=== PATIENT | female | born 1955 | race African-American/Black ===

== ENCOUNTER 2018-04-12 11:27 | Inpatient (IN) ==
[2018-04-12] MEDS ORDERED: Succinylcholine Inj 200 MG/10 ML Vial ONE (11:39)
[2018-04-12] MEDS ORDERED: Lidocaine PF 1% Inj 2 ML Ampul ONE (11:41)
[2018-04-12] MEDS ORDERED: Propofol 1000 mg/100 ml Inj 1,000 MG/100 ML BOTTLE ONE (11:45)
[2018-04-12] MEDS ORDERED: Sod Chloride 0.9% Inj 1,000 ML IV.CONT SCH (11:45)
[2018-04-12] MEDS ORDERED: niCARdipine Inj 25 MG in Sodium Chlor 0.9% Inj 240 ML IV.CONT PRN (11:47)
[2018-04-12] MEDS ORDERED: Etomidate Inj 20 MG/10 ML Ampul IV.PUSH ONE (11:47)
[2018-04-12] MEDS ORDERED: Succinylcholine Inj 100 MG/5 ML Syringe IV.PUSH ONE (11:47)
[2018-04-12] MEDS ORDERED: Propofol 1000 mg/100 ml Inj 1,000 MG/100 ML BOTTLE IV.CONT PRN (11:47)
[2018-04-12 11:50] LABS: Baso # (Auto) 0.1 th/mm3 (0.0-0.2); Baso % (Auto) 0.9 % (0.0-2.0); Eos # (Auto) 0.1 th/mm3 (0.0-0.4); Eos % (Auto) 1.5 % (0.0-4.0); Hematocrit 43.4 % (35.0-46.0); Hemoglobin 14.3 gm/dL (11.6-15.3); Lymph # (Auto) 4.1 th/mm3 (1.0-4.8); Lymph % (Auto) 57.2 % (9.0-44.0); Mean Corpuscular Hemoglobin 28.1 pg (27.0-34.0); Mean Corpuscular Volume 84.9 fL (80.0-100.0); Mean Platelet Volume 9.8 fL (7.0-11.0); Mono # (Auto) 0.5 th/mm3 (0.0-0.9); Mono % (Auto) 6.6 % (0.0-8.0); Neut # (Auto) 2.4 th/mm3 (1.8-7.7); Neut % (Auto) 33.8 % (16.0-70.0); Platelet Count 171 th/mm3 (150-450); Red Blood Count 5.11 mil/mm3 (4.00-5.30); Red Cell Distribution Width 13.6 % (11.6-17.2); White Blood Count 7.2 th/mm3 (4.0-11.0)
--- NOTE | 2018-04-12 11:55 | CT ---
EXAM DATE: 04/12/2018 11:41 AM EDT AGE/SEX: 62 years / Female INDICATIONS: STROKE ALERT CLINICAL DATA: This is the patient's initial encounter. Patient reports that signs and symptoms have been present for 1 day and indicates a pain score of Nonresponsive. MEDICAL/SURGICAL HISTORY: Non-responsive. Non-responsive. RADIATION DOSE: 56.37 CTDI (mGy) COMPARISON: No prior exams available for comparison. TECHNIQUE: CT of the head without contrast. Using automated exposure control and adjustment of the mA and/or kV according to patient size, radiation dose was kept as low as reasonably achievable to ob tain optimal diagnostic quality images. DICOM format image data is available electronically for revi ew and comparison. FINDINGS: There is acute intraparenchymal blood products within the right frontal lobe, right basal ganglia, an d anterior right temporal lobe measuring approximately 6.7 x 4.2 cm. There is surrounding vasogenic e nelson with local mass effect causing 13 mm of [id number]-mcqa midline shift. Subarachnoid blood products also layer along the sulci in the right frontal lobe and there are acute blood products in the perim esencephalic cisterns and interpeduncular fossa. Ventricles are not enlarged. Besides the blood products in the posterior fossa, the posterior fossa s tructures including the cerebellum demonstrate no acute abnormality. No skull fracture is identified. The visualized sinuses are clear. CONCLUSION: 1. Acute intraparenchymal hemorrhage measuring up to 6.7 cm with surrounding vasogenic edema. This c auses local mass effect with 13 mm of aarkj-ok-sumv midline shift. 2. Subarachnoid blood products layer along the right frontal sulci and in the perimesencephalic cist erns. Findings were telephoned to Dr. Weaver on 04/12/2018 at 1151 hours. Electronically signed by: Jairo Conner MD 04/12/2018 11:54 AM EDT
--- NOTE | 2018-04-12 12:02 | ED ---
HPI General Chief Complaint: Stroke Alert Stated Complaint: Stroke Alert Time Seen by Provider: 04/12/18 11:31 Source: EMS Mode of arrival: EMS Limitations: altered mental status and physical limitation History of Present Illness HPI Narrative: The patient is a 62-year-old female who presents to the emergency department via EMS as a stroke alert. According to EMS the patient was at [employer], sitting in the sun earlier today when she collapsed at approximately 11 AM. The patient appear to have a syncopal episode and then was noted to have left-sided weakness and left facial droop. EMS states that the patient's symptoms started at 11 AM. Upon arrival the patient had snoring respirations, was nonverbal, but would follow some simple commands. She was able to raise her right arm, flex her right hip, and squeeze her right hand. She was unable to perform any movements with the left side of the body. She was unable to answer any questions. History was obtained from EMS who states the patient has a history of hypertension and takes an a blood pressure medication for hypertension, they state the patient is on no anticoagulants. Time: 11:00 Timing confirmed by: other Location: speech, left face, left arm and left leg History of same: No Severity: severe Quality: weak Relieving factors: none Exacerbating factors: none Context: sudden onset On Anticoagulants: No Treatments Prior to Arrival: none Related Data Allergies Allergy/AdvReac Type Severity Reaction Status Date / Time No Known Allergies Allergy Uncoded 01/23/16 14:05 Review of Systems ROS Unobtainable ROS Unobtainable: unobtainable due to mental status ROS: all other systems reviewed are negative PMFSH Social History Social History Substance History: Unable to Obtain Smoking Status: Unknown if ever smoked How Often Do You Have a Drink Containing Alcohol: Unable to Obtain Recent Travel in [facility] within the Last 8 Weeks: No Recent Out of Country Travel within the Last 8 Weeks: No Immunization History Tetanus Immunization: Unsure Hx Influenza Vaccine This Season: Unable to Assess Exam Narrative Exam Narrative: GENERAL: 62-year-old female who presents to the emergency department via EMS with rhonchorous respirations and flaccid left side. SKIN: Focused skin assessment warm/dry. HEAD: Atraumatic. Normocephalic. EYES: Right pupil is 5 mm, slightly irregular, nonreactive. Left pupil is 4 mm and sluggish. ENT: No nasal bleeding or discharge. Mucous membranes pink and moist. NECK: Trachea midline. No JVD. CARDIOVASCULAR: Regular rate and rhythm. No murmur appreciated. RESPIRATORY: No accessory muscle use. Clear to auscultation. Breath sounds equal bilaterally. GASTROINTESTINAL: Abdomen soft, non-tender, nondistended. MUSCULOSKELETAL: No obvious deformities. No clubbing. No cyanosis. No edema. NEUROLOGICAL: Patient's right pupil is irregular, nonreactive. Left pupil is 4 mm and sluggish. Nonverbal. Right facial droop. Flaccid on the left side of the body, does not withdrawal to pain. Flex his right hip spontaneously. Is able to raise her right arm. Unable to assess alert and orientation as patient is currently nonverbal with slightly snoring and rhonchorous respirations. PSYCHIATRIC: Unable to assess. Procedures Arterial Line Time Out Performed: Yes Size (Gauge): 18 Technique Used: guide wire technique Post-Procedure: line sutured into place Patient Tolerated Procedure: well Complications: none Site: left Intubation Time Out Performed: Yes Sedative: etomidate Mg Given: 20 Paralytic: succinylcholine Mg Given: 100 Laryngoscope: Juan ET Tube Size: 8 ET Tube Uncuffed: No Tube Secured Depth (cm): 23 Tube Placement Confirmation: visualized tube passing through cords, equal breath sounds bilaterally, no breath sounds over epigastrium and confirmation by capnometry Patient Tolerated Procedure: well Intubation Complications: none Course Initial Documented Vital Signs Pulse Rate 69 04/12/18 11:42 Respiratory Rate 18 04/12/18 11:42 Blood Pressure 190/91 H 04/12/18 11:42 Pulse Oximetry 99 04/12/18 11:42 Last Documented Vital Signs Temperature 95.9 F L 04/12/18 12:24 Pulse Rate 73 04/12/18 12:24 Respiratory Rate 16 04/12/18 12:24 Blood Pressure 73/49 L 04/12/18 12:24 Pulse Oximetry 100 04/12/18 12:26 Critical Care Time Critical Care Time: Yes Total Critical Care Time: 50 Attestation: Aggregate critical care time was 50 minutes. Time to perform other separately billable procedures was not included in the critical care time. My time did not include minutes spent treating any other patients simultaneously or on activities that did not directly contribute to the patient's treatment. The services I provided to this patient were to treat and/or prevent clinically significant deterioration that could result in: Anoxia, hypoxia, aspiration, herniation, arrhythmia. I provided critical care services requiring my management, as noted below: Chart data review, documentation time, medication orders and management, vital sign assessments/reviewing monitor data, ordering and reviewing lab tests, ordering and interpreting/reviewing x-rays and diagnostic studies, care of the patient and discussion of the patient with the admitting physicians. NIH Stroke Scale NIHSS Time Completed NIHSS Time Completed: 11:34 NIH Stroke Scale Level of Consciousness: 1-Drowsy Orientation Questions: 2-Neither task correct Responds to Commands: 1-One task correct Gaze Eye Movement: 2-Complete gaze palsy Visual Kerr: 3-Bilateral hemianopia Facial Movement: 3-Complete unilateral palsy Motor Functions Arm LEFT: 3-No effort against gravity Motor Functions Arm RIGHT: 0-No drift Motor Functions Leg LEFT: 3-No effort against gravity Motor Functions Leg RIGHT: 2-Falls before 5 seconds Limb Ataxia: 2-Ataxia in two limbs Sensory Loss: 2-Severe sensory loss Best Language: 3-Mute or global aphasia Articulation: 2-Severe dysarthria Extinction or Inattention Sensory: 2-Loss 2 modalities Total: 31 Medical Decision Making MDM Narrative Medical decision making narrative: under direct visualization with a MAC blade , 8 oh endotracheal tubeThe patient was called a stroke alert upon arrival to the emergency department. The patient was noted to have left-sided deficits, snoring and rhonchorous respirations, and decreased mental status. The patient went immediately to CT for CT the brain which revealed a large intracranial hemorrhage. The patient was brought back to echo pod and intubated to protect airway with 20 mg of etomidate, 100 mg of succinylcholine, and 100 mg of lidocaine that was administered first. The patient was administer mannitol 50 g intravenously. I discussed the patient with the neurosurgeon, Dr. Tinoco, who evaluated the patient CT the brain and requested CTA to evaluate for aneurysm rupture. The patient then went immediately to CT for CTA of the head and neck. The patient was brought back to echo pod, OG tube and Vasquez catheter were placed. The patient was administered pneumo top 30 mg via OG, placed on a Cardene drip to keep systolic blood pressure less than 140, and a propofol drip. The patient received Keppra 1 g intravenously. An arterial line was placed in the left radial artery. The neurosurgeon then placed a ventriculostomy tube and spoke with the neurosurgeons at [facility], the patient will be transferred to [facility] in [place], [place], for definitive care. I discussed the findings with the patient's family Medical Screen Exam Complete: Yes Emergency Medical Condition: Yes Differential Diagnosis Differential Diagnosis: Differential diagnosis includes intracranial hemorrhage , subarachnoid hemorrhage, aneurysm with rupture, coagulopathy, herniation. Lab Data Lab results reviewed: Yes I reviewed the patient's lab results. Result diagrams: 04/12/18 11:30 04/12/18 11:30 Lab Results 04/12/18 04/12/18 04/12/18 Range/Units 11:30 11:30 11:30 WBC 7.2 (4.0-11.0) th/mm3 RBC 5.11 (4.00-5.30) mil/mm3 Hgb 14.3 (11.6-15.3) gm/dL POC Hgb (Calc) 14.6 (11.6-15.3) g/dL Hct 43.4 (35.0-46.0) % POC Hct 43.0 (35-46.0) % MCV 84.9 (80.0-100.0) fL MCH 28.1 (27.0-34.0) pg MCHC 33.0 (32.0-36.0) % RDW 13.6 (11.6-17.2) % Plt Count 171 (150-450) th/mm3 MPV 9.8 (7.0-11.0) fL Neut % (Auto) 33.8 (16.0-70.0) % Lymph % (Auto) 57.2 H (9.0-44.0) % [place] % (Auto) 6.6 (0.0-8.0) % Eos % (Auto) 1.5 (0.0-4.0) % Baso % (Auto) 0.9 (0.0-2.0) % Neut # (Auto) 2.4 (1.8-7.7) th/mm3 Lymph # (Auto) 4.1 (1.0-4.8) th/mm3 [place] # (Auto) 0.5 (0.0-0.9) th/mm3 Eos # (Auto) 0.1 (0.0-0.4) th/mm3 Baso # (Auto) 0.1 (0.0-0.2) th/mm3 WBC Differential . Differential Comment Auto diff final PT 10.4 (9.8-11.6) sec INR 1.0 Ratio APTT 17.8 L (24.3-30.1) sec Fibrinogen 328 (227-377) mg/dL Puncture Site Patient Temperature VBG pH (7.360-7.400) VBG pCO2 (44-48) mmHG VBG pO2 (35-40) mmHG VBG HCO3 (22-26) mmol/L VBG O2 Saturation (70-76) % VBG O2 Content (9.0-17.0) Vol % VBG Base Excess (-2-2) mmol/L VBG Carboxyhemoglobin (0-4) % VBG Methemoglobin (0-2) % Hemoglobin (12.0-16.0) G/DL O2 Delivery Device Vent Setting Inspired O2 % Critical Value POC Sodium 143 (137-144) mmol/L Sodium 143 (136-145) meq/L POC Potassium 3.0 L (3.6-5.0) mmol/L Potassium 3.0 L (3.5-5.1) meq/L POC Chloride 108 (102-111) mmol/L Chloride 110 H (98-107) meq/L Carbon Dioxide 26.1 (21.0-32.0) meq/L Anion Gap 7 (5-15) meq/L POC BUN 15 (5-21) mg/dL BUN 15 (7-18) mg/dL Creatinine 1.02 H (0.50-1.00) mg/dL POC Creatinine 0.9 (0.6-1.3) mg/dL Estimated GFR 66 L (>89) mL/min POC Glucose 174 H (68-110) mg/dL Random Glucose 167 H (74-106) mg/dL Calcium 8.8 (8.5-10.1) mg/dL Total Creatine Kinase 90 (26-192) U/L Troponin I Less than 0.02 L (0.02-0.05) ng/mL Urine Color (Yellw/Straw) Urine Clarity (Clear) Urine pH (5.0-8.5) Ur Specific [place] (1.002-1.035) Urine Protein (Neg-Trace) mg/dL Urine Glucose (UA) (Negative) mg/dL Urine Ketones (Negative) mg/dL Urine Occult Blood (Negative) Urine Nitrate (Negative) Urine Bilirubin (Negative) Urine Urobilinogen (Less than 2) mg/dL Ur Leukocyte Esterase (Negative) Urine RBC (0-3) /hpf Urine WBC (0-5) /hpf Ur Squamous Epith Cells (0-5) /hpf Urine Bacteria (None) /hpf Hyaline Casts (0-3) /lpf Urine Mucus (Occasional) /lpf Micro UA Comment Urine Culture Comments Blood Type Blood Type Recheck Antibody Screen 04/12/18 04/12/18 04/12/18 Range/Units 11:30 11:57 12:35 WBC (4.0-11.0) th/mm3 RBC (4.00-5.30) mil/mm3 Hgb (11.6-15.3) gm/dL POC Hgb (Calc) (11.6-15.3) g/dL Hct (35.0-46.0) % POC Hct (35-46.0) % MCV (80.0-100.0) fL MCH (27.0-34.0) pg MCHC (32.0-36.0) % RDW (11.6-17.2) % Plt Count (150-450) th/mm3 MPV (7.0-11.0) fL Neut % (Auto) (16.0-70.0) % Lymph % (Auto) (9.0-44.0) % [place] % (Auto) (0.0-8.0) % Eos % (Auto) (0.0-4.0) % Baso % (Auto) (0.0-2.0) % Neut # (Auto) (1.8-7.7) th/mm3 Lymph # (Auto) (1.0-4.8) th/mm3 [place] # (Auto) (0.0-0.9) th/mm3 Eos # (Auto) (0.0-0.4) th/mm3 Baso # (Auto) (0.0-0.2) th/mm3 WBC Differential Differential Comment PT (9.8-11.6) sec INR Ratio APTT (24.3-30.1) sec Fibrinogen (227-377) mg/dL Puncture Site Right radial Patient Temperature 98.6 VBG pH 7.36 (7.360-7.400) VBG pCO2 39 L (44-48) mmHG VBG pO2 47 H (35-40) mmHG VBG HCO3 21 L (22-26) mmol/L VBG O2 Saturation 80 H (70-76) % VBG O2 Content 14.2 (9.0-17.0) Vol % VBG Base Excess -3.2 L (-2-2) mmol/L VBG Carboxyhemoglobin 0.8 (0-4) % VBG Methemoglobin 0.7 (0-2) % Hemoglobin 12.7 (12.0-16.0) G/DL O2 Delivery Device Ventilator Vent Setting Prvc20/500/1.0/+5 Inspired O2 50 % Critical Value No POC Sodium (137-144) mmol/L Sodium (136-145) meq/L POC Potassium (3.6-5.0) mmol/L Potassium (3.5-5.1) meq/L POC Chloride (102-111) mmol/L Chloride (98-107) meq/L Carbon Dioxide (21.0-32.0) meq/L Anion Gap (5-15) meq/L POC BUN (5-21) mg/dL BUN (7-18) mg/dL Creatinine (0.50-1.00) mg/dL POC Creatinine (0.6-1.3) mg/dL Estimated GFR (>89) mL/min POC Glucose (68-110) mg/dL Random Glucose (74-106) mg/dL Calcium (8.5-10.1) mg/dL Total Creatine Kinase (26-192) U/L Troponin I (0.02-0.05) ng/mL Urine Color Yellow (Yellw/Straw) Urine Clarity Cloudy H (Clear) Urine pH 6.0 (5.0-8.5) Ur Specific [place] 1.013 (1.002-1.035) Urine Protein 100 H (Neg-Trace) mg/dL Urine Glucose (UA) 150 H (Negative) mg/dL Urine Ketones Trace H (Negative) mg/dL Urine Occult Blood Large H (Negative) Urine Nitrate Negative (Negative) Urine Bilirubin Negative (Negative) Urine Urobilinogen Less than 2 (Less than 2) mg/dL Ur Leukocyte Esterase Trace H (Negative) Urine RBC 1 (0-3) /hpf Urine WBC 7 H (0-5) /hpf Ur Squamous Epith Cells 13 (0-5) /hpf Urine Bacteria Rare H (None) /hpf Hyaline Casts 3 (0-3) /lpf Urine Mucus Few H (Occasional) /lpf Micro UA Comment Cath-culture ind Urine Culture Comments Cath-cult indicated Blood Type A Positive Blood Type Recheck Required Antibody Screen Negative Imaging Data Radiologist's impression: Chest X-Ray 04/12/18 11:31 CONCLUSION: 1. ETT in good position. NGT in the stomach. 2. Minimal patchy bilateral lower lobe airspace disease, likely atelectasis. Head CT 04/12/18 11:31 CONCLUSION: 1. Acute intraparenchymal hemorrhage measuring up to 6.7 cm with surrounding vasogenic edema. This causes local mass effect with 13 mm of npbzu-tu-woqm midline shift. 2. Subarachnoid blood products layer along the right frontal sulci and in the perimesencephalic cisterns. Findings were telephoned to Dr. Weaver on 04/12/2018 at 1151 hours. Head CTA 04/12/18 11:31 CONCLUSION: 1. Findings consistent with active hemorrhage from the distal right M1 branch with associated large right parietal intraparenchymal hematoma and significant ctgaa-wo-qkng subfalcine herniation as described on noncontrasted CT exam. The right M2 branches are largely not opacified although a single M2 branch is noted coursing posteriorly from the region of extravasation. Although active hemorrhage obscures any potential vascular abnormality, the overall findings are very concerning for active hemorrhage from the distal right M1 aneurysm. Findings were personally discussed with the neurosurgeon propagation worker. Neck CTA 04/12/18 11:31 CONCLUSION: 1. Motion degraded exam with limited evaluation of the mid to distal right internal carotid cervical segment. 2. Otherwise, no significant carotid flow-limiting stenosis or atherosclerotic plaque. 3. Asymmetric vertebral arteries with small caliber left vertebral artery likely terminating in PICA. ECG Data EKG Prior to Arrival: No Interpretation: EKG reveals normal sinus rhythm with a rate of 75. ST changes noted in lead V5, V6, I, and aVL. Discharge Plan Discharge Disposition Patient Disposition: 02 Disch To Another Hospital Discharge Condition Condition: Critical Discharge Order Discharge Orders: Discharge Order (Routine); Ordered 04/12/18 Ordered By: Sergey Weaver Discharge Details Diagnosis: Intraparenchymal hemorrhage of brain, Subarachnoid hemorrhage, Brain aneurysm Physicians Team ED Provider: Sergey Weaver Primary Care Provider: Hilary Zhang Discharge Interventions Interventions: Vital Signs Last Done: 04/12/18 12:24 Status ED Status: With Doctor
[2018-04-12 12:04] LABS: Anion Gap 7 meq/L (5-15); Blood Urea Nitrogen 15 mg/dL (7-18); Calcium 8.8 mg/dL (8.5-10.1); Carbon Dioxide 26.1 meq/L (21.0-32.0); Chloride 110 meq/L (98-107); Glomerular Filtration Rate 66 mL/min (>89); Glucose,Random 167 mg/dL (74-106); Prothrombin Time 10.4 sec (9.8-11.6); Sodium 143 meq/L (136-145)
[2018-04-12 12:07] LABS: Activated Partial Thrombo Time 17.8 sec (24.3-30.1)
[2018-04-12] MEDS ORDERED: Lidocaine 2% 100 MG/5 ML Syringe IV.PUSH ONE (12:11)
[2018-04-12 12:30] LABS: Creatine Kinase 90 U/L (26-192)
[2018-04-12 12:31] LABS: Bacteria,Urine Rare /hpf; Bilirubin,Urine Negative (Negative); Clarity,Urine Cloudy (Clear); Color,Urine Yellow (Yellw/Straw); Glucose,Urine (UA) 150 mg/dL (Negative); Hyaline Casts,Urine 3 /lpf (0-3); Leukocyte Esterase,Urine Trace (Negative); Mucus,Urine Few /lpf (Occasional); Nitrite,Urine Negative (Negative); Specific Gravity,Urine 1.013 (1.002-1.035); Squamous Epithelial Cell,Urine 13 /hpf (0-5)
[2018-04-12] MEDS ORDERED: Sodium Chlor 0.9% Inj 500 ML IV.SIG ONE (12:31)
[2018-04-12] MEDS ORDERED: Lidocaine 1%/Epinephrine 1:100,000 Inj 50 ML Vial ONE (12:41)
[2018-04-12 12:44] LABS: VBG Base Excess -3.2 mmol/L (-2-2); VBG Blood Gas Oxygen Content 14.2 Vol % (9.0-17.0); VBG PCO2 39 mmHG (44-48); VBG PH 7.36 (7.360-7.400); VBG PO2 47 mmHG (35-40)
[2018-04-12] MEDS ORDERED: Potassium Chlor 20 mEq Premix 20 MEQ/100 ML PIGGYBACK IV.SIG SCH (12:45)
[2018-04-12] MEDS ORDERED: ceFAZolin 2 GM Premix Inj 2 GM/50 ML PIGGYBACK IV.SIG ONE (12:49)
--- NOTE | 2018-04-12 12:56 | CT ---
EXAM DATE: 04/12/2018 12:30 PM EDT AGE/SEX: 62 years / Female INDICATIONS: Stroke alert. Blown right pupil. CLINICAL DATA: This is the patient's initial encounter. Patient reports that signs and symptoms have been present for 1 day and indicates a pain score of Nonresponsive. MEDICAL/SURGICAL HISTORY: Non-responsive. Non-responsive. RADIATION DOSE: 9.55 CTDI (mGy) ; Combined studies COMPARISON: [facility], CT HEAD W/O CONTRAST, 04/12/2018. . TECHNIQUE: Volumetric scanning was performed using a multi-row detector CT scanner during bolus infu vandana of 100 ml Visipaque 320 (iodixanol) nonionic water-soluble contrast as a cumulative dose for mu ltiple exams. The data was post processed with a variety of visualization algorithms including full volume maximum intensity projection, multi-planar sliding thin slab reformation, curved planar refor mation, and surface rendering techniques. Using automated exposure control and adjustment of the mA and/or kV according to patient size, radiation dose was kept as low as reasonably achievable to obtai n optimal diagnostic quality images. DICOM format image data is available electronically for review and comparison. FINDINGS: Anterior Circulation: Intracranial Carotid Arteries: Patent. ARIADNA: There is no evidence for aneurysm, vessel truncation or stenosis, and no evidence for vascular m alformation. MCA: There is active extravasation of contrast from the distal right M1 branch with a large right par ietal intraparenchymal hematoma and significant 1.3 cm right to left subfalcine herniation. The right M2 branches are largely not opacified on the right although a single M2 branch is noted coursing pos teriorly from the region of extravasation. Overall, the findings are very concerning for active hemor rhage from a distal M1 aneurysm. Left MCA branches are grossly patent without a large aneurysm althou gh evaluation is limited by motion artifact and mass effect at Posterior Circulation: Distal Vertebral Arteries: Asymmetrical distal vertebral arteries with dominant right vertebral arter y. Left vertebral artery is small in caliber and may terminate in PICA. Basilar Artery: Basilar artery is patent without significant aneurysm. WOOL BU[employer]ER and Cerebellar Branches: Posterior cerebral arteries are diminutive in caliber but patent. CONCLUSION: 1. Findings consistent with active hemorrhage from the distal right M1 branch with associated large right parietal intraparenchymal hematoma and significant jepjf-tb-omzi subfalcine herniation as descr ibed on noncontrasted CT exam. The right M2 branches are largely not opacified although a single M2 b ranch is noted coursing posteriorly from the region of extravasation. Although active hemorrhage obsc ures any potential vascular abnormality, the overall findings are very concerning for active hemorrha ge from the distal right M1 aneurysm. Findings were personally discussed with the neurosurgeon authorization manager. Electronically signed by: Pravin Armendariz MD 04/12/2018 12:54 PM EDT
[2018-04-12] MEDS ORDERED: levETIRAcetam 1000mg/100mL Inj 100 ML IV.SIG ONE (12:59)
--- NOTE | 2018-04-12 13:00 | CT ---
EXAM DATE: 04/12/2018 12:53 PM EDT AGE/SEX: 62 years / Female INDICATIONS: Stroke alert. Blown right pupil. CLINICAL DATA: This is the patient's initial encounter. Patient reports that signs and symptoms have been present for 1 day and indicates a pain score of Nonresponsive. MEDICAL/SURGICAL HISTORY: Non-responsive. Non-responsive. RADIATION DOSE: 9.55 CTDI (mGy) ; Combined studies COMPARISON: No prior exams available for comparison. TECHNIQUE: Volumetric scanning was performed using a multirow detector CT scanner during bolus infus ion of 100 ml Visipaque 320 (iodixanol) nonionic water-soluble contrast as a cumulative dose for mul tiple exams. The data was postprocessed with a variety of visualization algorithms including full-v olume maximum intensity projection, multiplanar sliding thin-slab reformation, curved-planar reformat ion, and surface-rendering techniques. Using automated exposure control and adjustment of the mA and /or kV according to patient size, radiation dose was kept as low as reasonably achievable to obtain o ptimal diagnostic quality images. DICOM format image data is available electronically for review and comparison. Percent stenosis is calculated using the diameter of the stenotic region over the diameter of the nor mal distal internal carotid artery. FINDINGS: Aortic Arch: There is a three-vessel origin of the great vessels from the aorta. No evidence of ost ial narrowing Right Carotid: The common carotid artery is intact. The carotid bulb has a normal configuration wit hout ulceration or narrowing. Mid to distal cervical segment of the internal carotid artery demonstra jd diffuse luminal irregularity due to motion artifact. No definitive focal flow-limiting stenosis o r significant atherosclerotic plaque. The external carotid artery is intact. Left Carotid: The common carotid artery is intact. The carotid bulb has a normal configuration with out ulceration or narrowing. The internal carotid artery lumen is patent without stenosis. The exte rnal carotid artery is intact. Vertebrals: Asymmetric vertebral arteries with small caliber left vertebral artery likely terminates in PICA. No focal flow-limiting stenosis. General Findings: Patient is intubated with NG tube coursing through the esophagus. Mild patchy airsp júnior disease in the posterior lower lobes bilaterally likely due to atelectasis. CONCLUSION: 1. Motion degraded exam with limited evaluation of the mid to distal right internal carotid cervical segment. 2. Otherwise, no significant carotid flow-limiting stenosis or atherosclerotic plaque. 3. Asymmetric vertebral arteries with small caliber left vertebral artery likely terminating in PICA . Electronically signed by: Pravin Armendariz MD 04/12/2018 12:59 PM EDT
--- NOTE | 2018-04-12 13:01 | XR ---
EXAM DATE: 04/12/2018 12:42 PM EDT AGE/SEX: 62 years / Female INDICATIONS: Stroke. CLINICAL DATA: This is the patient's initial encounter. Patient reports that signs and symptoms have been present for 1 day and indicates a pain score of Nonresponsive. MEDICAL/SURGICAL HISTORY: Stroke. Non-responsive. COMPARISON: No prior exams available for comparison. FINDINGS: ET tube at the level of the clavicles. NGT coursing to the stomach. Minimal bilateral lateral lower l obe patchy airspace disease. Cardiomediastinal contours are within normal limits. Bony thorax is inta ct. CONCLUSION: 1. ETT in good position. NGT in the stomach. 2. Minimal patchy bilateral lower lobe airspace disease, likely atelectasis. Electronically signed by: Pravin Armendariz MD 04/12/2018 1:00 PM EDT
[2018-04-12 13:15] LABS: ABG Base Excess -4.5 mmol/L (-2-2); ABG PCO2 33 mmHg (38-42); ABG PO2 112 mmHg (61-120)
[2018-04-12] MEDS ORDERED: Metoprolol Inj 5 MG/5 ML Vial IV.PUSH ONE (13:51)
[2018-04-12] MEDS ORDERED: Bisacodyl 10 MG Supp RECTAL PRN (14:05)
[2018-04-12] MEDS ORDERED: Morphine Inj 4 MG/ML Vial IV.PUSH PRN (14:05)
[2018-04-12] MEDS ORDERED: Acetaminophen 325 MG Tablet PO PRN (14:05)
--- NOTE | 2018-04-12 14:25 | P.CONNS ---
History of Present Illness Service: neurosurgery Consult date: 04/12/18 Reason for Consult: SAH/IPH Primary Care Provider: UNKNOWN History of Present Illness: 62 yo with PMH of HTN presents to ED found to have SAH/IPH. Patient was last seen normal roughly 1 hour ago. Family reports "was dancing at [employer] when slumped over and displayed Left sided facial droop." Patient was taken to the ED. Per ED attending, patient E3 but following commands intermittently on the right side, plegic on the left. Following imaging, patient noted to be increasingly lethargic, prompting intubation. Patient given 50 g of mannitol, 1000mg of keppra. Review of Systems limited ROS due to patients condition All other systems reviewed negative except as stated in HPI PMFSH - History History Provided By: Patient, Family Member - Tobacco History Smoking Status: Unknown if ever smoked - Alcohol History How Often Do You Have a Drink Containing Alcohol: Unable to Obtain - Substance Use History Substance History: Unable to Obtain - Travel History Recent Travel in the [place] Within the Last 8 Weeks: No Recent Travel Out of the Country Within the Last 8 Weeks: No - Immunization History Tetanus Immunization: Unsure Hx Influenza Vaccine This Season: Unable to Assess Medications and Allergies Active Medications: Active Medications Acetaminophen (Tylenol) 650 mg PO Q6H PRN PRN Reason: PAIN 1-10 AND/OR FEVER >101F Al Hydroxide/Mg Hydroxide (Milk Of Abraham Thrasher) 30 ml PO Q12H PRN PRN Reason: Mild Constipation Albuterol (Duoneb Neb (Prn)) 1 ampul NEB Q2HR NEB PRN PRN Reason: WHEEZING Bisacodyl (Dulcolax Supp) 10 mg RECTAL DAILY PRN PRN Reason: SEVERE CONSITIPATION Chlorhexidine Gluconate (Peridex 0.12% Oral Kit) 15 ml OROPHARYNG BID@0800, 2000 [facility] Chlorhexidine Gluconate (Chlorhexidine 2% Cloth) 3 pack TOPICAL DAILY@0400 [facility] Stop: 04/18/18 03:59 Chlorhexidine Gluconate (Chlorhexidine 2% Cloth) 3 pack TOPICAL DAILY@0400 PRN PRN Reason: Extra cloth needed Stop: 04/18/18 03:59 Famotidine (Pepcid Pf Inj) 20 mg IV.PUSH Q12HR [facility] Sodium Chloride (Ns Inj) 1,000 mls @ 70 mls/hr IV.CONT .[id number] [facility] Last Admin: 04/12/18 12:13 Dose: 70 mls/hr Propofol (Diprivan 1000 Mg/100 Ml Inj) 1,000 mg in 100 mls @ 2.181 mls/hr IV.CONT TITRATE PRN; Protocol PRN Reason: Per Protocol Last Admin: 04/12/18 12:13 Dose: 5 mcg/kg/min, 2.18 mls/hr Nicardipine HCl 25 mg/ Sodium (Chloride) 250 mls @ 50 mls/hr IV.CONT TITRATE PRN; Protocol PRN Reason: Per Protocol Last Admin: 04/12/18 12:14 Dose: 5 mg/hr, 50 mls/hr Potassium Chloride (Kcl 20 Meq Premix Inj) 20 meq in 100 mls @ 50 mls/hr IV.SIG Q2H [facility] Stop: 04/12/18 16:44 Sodium Chloride (Sodium Chloride 3% Inj) 250 mls @ 10 mls/hr IV.SIG ONCE ONE Stop: 04/13/18 14:15 Lactulose (Lactulose Liq) 30 ml PO DAILY PRN PRN Reason: SEVERE CONSITIPATION Morphine Sulfate (Morphine Inj) 2 mg IV.PUSH Q2H PRN PRN Reason: PAIN SCALE 6 TO 10 Ondansetron HCl (Zofran Inj) 4 mg IV.PUSH Q6H PRN PRN Reason: NAUSEA OR VOMITING Senna/Docusate Sodium (Pauline-Colace) 1 tab PO BID [facility] Sennosides (Senokot) 17.2 mg PO Q12H PRN PRN Reason: Moderate Constipation Sodium Chloride (Ns Flush) 2 ml IV.FLUSH BID [facility] Sodium Chloride (Ns Flush) 2 ml IV.FLUSH PRN PRN PRN Reason: FLUSH AFTER USING IV ACCESS Allergies Allergy/AdvReac Type Severity Reaction Status Date / Time No Known Allergies Allergy Uncoded 01/23/16 14:05 Exam Vital signs: Vital Signs 04/12/18 11:42 04/12/18 11:51 04/12/18 11:54 Temperature Pulse Rate 69 70 Respiratory Rate 18 16 16 Blood Pressure 190/91 H 242/109 H Pulse Oximetry 99 100 98 04/12/18 12:24 04/12/18 12:26 Temperature 95.9 F L Pulse Rate 73 Respiratory Rate 16 Blood Pressure 73/49 L Pulse Oximetry 98 100 Intake & Output 04/11/18 04/12/18 04/12/18 18:59 06:59 18:59 Weight 72.7 kg Narrative: E1 pupils 7 mm and fixed +corneals +cough +gag intubated does not follow commands Extensor posturing in the UE Rt > LT triple flexion in the LE Results - Laboratory Findings CBC and BMP: 04/12/18 11:30 04/12/18 11:30 Abnormal lab findings: Abnormal Labs 04/12/18 04/12/18 04/12/18 11:30 11:30 11:30 Lymph % (Auto) 57.2 H APTT 17.8 L ABG pCO2 ABG HCO3 ABG Base Excess VBG pCO2 VBG pO2 VBG HCO3 VBG O2 Saturation VBG Base Excess POC Potassium 3.0 L Potassium 3.0 L Chloride 110 H Creatinine 1.02 H Estimated GFR 66 L POC Glucose 174 H Random Glucose 167 H Troponin I Less than 0.02 L Urine Clarity Urine Protein Urine Glucose (UA) Urine Ketones Urine Occult Blood Ur Leukocyte Esterase Urine WBC Urine Bacteria Urine Mucus 04/12/18 04/12/18 04/12/18 11:57 12:35 12:49 Lymph % (Auto) APTT ABG pCO2 33 L ABG HCO3 20 L ABG Base Excess -4.5 L VBG pCO2 39 L VBG pO2 47 H VBG HCO3 21 L VBG O2 Saturation 80 H VBG Base Excess -3.2 L POC Potassium Potassium Chloride Creatinine Estimated GFR POC Glucose Random Glucose Troponin I Urine Clarity Cloudy H Urine Protein 100 H Urine Glucose (UA) 150 H Urine Ketones Trace H Urine Occult Blood Large H Ur Leukocyte Esterase Trace H Urine WBC 7 H Urine Bacteria Rare H Urine Mucus Few H Assessment and Plan - Plan Imaging: -CT head: large 6.7 x 4.2 cm right IPH with 1.3 cm of midline shift. Significant SAH involving the perimesoncephalic cisterns. early hydrocephalus noted -CTA head: no definitive aneurysm seen but active extravasation of contrast near the right MCA bifurcation Procedures: Left ventricular drain: Patients family consented. Hair prepped and drapped in sterile fashion. preincision antibiotics given. obtained csf with one pass with left sided catheter. CSF under pressure 62 yo GCS 4, HH 5, FG 3 SAH with right IPH (ICH score 3) -patient to be admitted to ICU pending transfer to /[facility] for endovascular evaluation -Continue CSF drainage at 20 (concern for aneurysm) -Keppra 500 mg BID for seizure prophylaxis -SBP goal <140 -Nimodipine Procedures - Arterial Line Size (Gauge): 18
[2018-04-12] MEDS ORDERED: Labetalol HCl Inj 100 MG/20 ML Vial IV.PUSH PRN (14:48)
[2018-04-12] MEDS ORDERED: Metoprolol Tartrate 25 MG Tablet PO SCH (15:00)
--- NOTE | 2018-04-12 15:28 | P.HPCC ---
History of Present Illness Service: Critical care medicine. Primary Care Physician: UNKNOWN Chief Complaint: Stroke alert. History of Present Illness: 62-year-old woman collapsed at [facility]. Following this episode she had left arm and leg weakness and slurred speech. 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 She deteriorated further to snoring respirations and inadequate airway control and required intubation and mechanical ventilation. Cardene infusion was used for blood pressure control and following the insertion of an NG tube number top 30 mg was given. Episodic tachycardia in the range 160 required intermittent intravenous Lopressor. Meticulous blood pressure control less than 140 has been accomplished using beta-marco and Cardene therapy. Mechanical ventilation is produced a partial pressure of carbon dioxide in the low normal range. The learning consultant neurosurgeon placed a ventriculostomy in the contralateral hemisphere and with drainage and intracranial pressure of 16 is accomplished. The EVD is leveled at 20. I have met the patient on her arrival to the intensive care unit were ongoing blood pressure manipulations have been continued. Report has now been given to the transport team at [facility] and arrangements are being made for transfer. I have talked extensively with the family. They understand that this is an extremely serious bleed in the brain and that chances for survival are low. Specifically, I have talked to the and he acknowledges understanding of the dire condition. - Diagnosis (1) Intraparenchymal hemorrhage of brain (2) Acute respiratory failure (3) Coma (4) Brain aneurysm (5) Subarachnoid hemorrhage Inpatient Certification: I certify that the inpatient services were ordered in accordance with Medicare regulations governing the order. This includes certification that hospital inpatient services are reasonable and necessary and in the case of services not specified as inpatient-only under 42 CFR 419.22(n), that they are appropriately provided as inpatient services in accordance to with the 2-midnight benchmark under 43 CFR 412.3(e) Estimated Total Length of Stay (Days): 9 Plans for Post Hospital Care: Other acute care hospital Review of Systems Unable to obtain, patient is intubated and sedated, no family immediately available. unobtainable due to mental condition PMFSH - History History Provided By: Patient, Family Member - Medical / Surgical Hx Neg / Unobtainable Medical Problems Denied: Unable to Obtain - Tobacco History Second Hand Smoke Exposure: No Tobacco Use In Past 30 Days: No Smoking Status: Unknown if ever smoked - Alcohol History How Often Do You Have a Drink Containing Alcohol: Unable to Obtain - Substance Use History Substance History: Unable to Obtain - Travel History History of Recent Travel: No Recent Travel in the [place] Within the Last 8 Weeks: No Recent Travel Out of the Country Within the Last 8 Weeks: No - Immunization History Tetanus Immunization: Unsure Hx Influenza Vaccine This Season: Unable to Assess Pediatric Immunizations Up to Date: No Medications and Allergies Active Medications: Active Medications Acetaminophen (Tylenol) 650 mg PO Q6H PRN PRN Reason: PAIN 1-10 AND/OR FEVER >101F Al Hydroxide/Mg Hydroxide (Milk Of Abraham Ligurvinder) 30 ml PO Q12H PRN PRN Reason: Mild Constipation Albuterol (Duoneb Neb (Prn)) 1 ampul NEB Q2HR NEB PRN PRN Reason: WHEEZING Bisacodyl (Dulcolax Supp) 10 mg RECTAL DAILY PRN PRN Reason: SEVERE CONSITIPATION Chlorhexidine Gluconate (Peridex 0.12% Oral Kit) 15 ml OROPHARYNG BID@0800, 2000 [facility] Chlorhexidine Gluconate (Chlorhexidine 2% Cloth) 3 pack TOPICAL DAILY@0400 [facility] Stop: 04/18/18 03:59 Chlorhexidine Gluconate (Chlorhexidine 2% Cloth) 3 pack TOPICAL DAILY@0400 PRN PRN Reason: Extra cloth needed Stop: 04/18/18 03:59 Chlorhexidine Gluconate (Chlorhexidine 2% Cloth) 3 pack TOPICAL DAILY@0400 [facility] Stop: 04/18/18 03:59 Chlorhexidine Gluconate (Chlorhexidine 2% Cloth) 3 pack TOPICAL DAILY@0400 PRN PRN Reason: Extra cloth needed Stop: 04/18/18 03:59 Famotidine (Pepcid Pf Inj) 20 mg IV.PUSH Q12HR [facility] Famotidine (Pepcid) 20 mg NG/OG BID [facility] Sodium Chloride (Ns Inj) 1,000 mls @ 70 mls/hr IV.CONT .[id number] [facility] Last Admin: 04/12/18 12:13 Dose: 70 mls/hr Propofol (Diprivan 1000 Mg/100 Ml Inj) 1,000 mg in 100 mls @ 2.181 mls/hr IV.CONT TITRATE PRN; Protocol PRN Reason: Per Protocol Last Admin: 04/12/18 12:13 Dose: 5 mcg/kg/min, 2.18 mls/hr Nicardipine HCl 25 mg/ Sodium (Chloride) 250 mls @ 50 mls/hr IV.CONT TITRATE PRN; Protocol PRN Reason: Per Protocol Last Admin: 04/12/18 12:14 Dose: 5 mg/hr, 50 mls/hr Potassium Chloride (Kcl 20 Meq Premix Inj) 20 meq in 100 mls @ 50 mls/hr IV.SIG Q2H [facility] Stop: 04/12/18 16:44 Sodium Chloride (Sodium Chloride 3% Inj) 250 mls @ 10 mls/hr IV.SIG ONCE ONE Stop: 04/13/18 14:15 Labetalol HCl (Trandate Inj) 20 mg IV.PUSH Q1H PRN PRN Reason: SBP > 140 Lactulose (Lactulose Liq) 30 ml PO DAILY PRN PRN Reason: SEVERE CONSITIPATION Metoprolol Tartrate (Lopressor) 25 mg PO BID [facility] Last Admin: 04/12/18 15:01 Dose: 25 mg Morphine Sulfate (Morphine Inj) 2 mg IV.PUSH Q2H PRN PRN Reason: PAIN SCALE 6 TO 10 Ondansetron HCl (Zofran Inj) 4 mg IV.PUSH Q6H PRN PRN Reason: NAUSEA OR VOMITING Senna/Docusate Sodium (Pauline-Colace) 1 tab PO BID [facility] Sennosides (Senokot) 17.2 mg PO Q12H PRN PRN Reason: Moderate Constipation Sodium Chloride (Ns Flush) 2 ml IV.FLUSH BID [facility] Sodium Chloride (Ns Flush) 2 ml IV.FLUSH PRN PRN PRN Reason: FLUSH AFTER USING IV ACCESS Allergies Allergy/AdvReac Type Severity Reaction Status Date / Time No Known Allergies Allergy Uncoded 01/23/16 14:05 Results - Labs CBC & Chem 7: 04/12/18 11:30 04/12/18 11:30 Labs: Short CBC 04/12/18 Range/Units 11:30 WBC 7.2 (4.0-11.0) th/mm3 Hgb 14.3 (11.6-15.3) gm/dL Hct 43.4 (35.0-46.0) % Plt Count 171 (150-450) th/mm3 BMP 04/12/18 11:30 Sodium 143 Potassium 3.0 L Chloride 110 H Carbon Dioxide 26.1 BUN 15 Creatinine 1.02 H Calcium 8.8 Cardiac Enzymes 04/12/18 Range/Units 11:30 Total Creatine Kinase 90 (26-192) U/L Troponin I Less than 0.02 L (0.02-0.05) ng/mL Urine 04/12/18 Range/Units 11:57 Urine Color Yellow (Yellw/Straw) Urine Clarity Cloudy H (Clear) Urine pH 6.0 (5.0-8.5) Ur Specific Mason 1.013 (1.002-1.035) Urine Protein 100 H (Neg-Trace) mg/dL Urine Glucose (UA) 150 H (Negative) mg/dL - Imaging Impressions Chest X-Ray 04/12/18 11:31 CONCLUSION: 1. ETT in good position. NGT in the stomach. 2. Minimal patchy bilateral lower lobe airspace disease, likely atelectasis. Head CT 04/12/18 11:31 CONCLUSION: 1. Acute intraparenchymal hemorrhage measuring up to 6.7 cm with surrounding vasogenic edema. This causes local mass effect with 13 mm of [id number] midline shift. 2. Subarachnoid blood products layer along the right frontal sulci and in the perimesencephalic cisterns. Findings were telephoned to Dr. Weaver on 04/12/2018 at 1151 hours. Head CTA 04/12/18 11:31 CONCLUSION: 1. Findings consistent with active hemorrhage from the distal right M1 branch with associated large right parietal intraparenchymal hematoma and significant [id number] subfalcine herniation as described on noncontrasted CT exam. The right M2 branches are largely not opacified although a single M2 branch is noted coursing posteriorly from the region of extravasation. Although active hemorrhage obscures any potential vascular abnormality, the overall findings are very concerning for active hemorrhage from the distal right M1 aneurysm. Findings were personally discussed with the neurosurgeon contract negotiation manager. Neck CTA 04/12/18 11:31 CONCLUSION: 1. Motion degraded exam with limited evaluation of the mid to distal right internal carotid cervical segment. 2. Otherwise, no significant carotid flow-limiting stenosis or atherosclerotic plaque. 3. Asymmetric vertebral arteries with small caliber left vertebral artery likely terminating in PICA. Exam Vital signs: Vital Signs 04/12/18 11:42 04/12/18 11:51 04/12/18 11:54 Temperature Pulse Rate 69 70 Respiratory Rate 18 16 16 Blood Pressure 190/91 H 242/109 H Pulse Oximetry 99 100 98 04/12/18 12:24 04/12/18 12:26 04/12/18 14:30 Temperature 95.9 F L Pulse Rate 73 Respiratory Rate 16 20 Blood Pressure 73/49 L Pulse Oximetry 98 100 97 Intake & Output 04/11/18 04/12/18 04/12/18 18:59 06:59 18:59 Weight 72.7 kg Narrative: General: Unresponsive, on mechanical ventilation. Head: Atraumatic, left-sided external ventriculostomy drain in place. Neck: Supple, oral tracheal intubation. Lungs: Clear bilaterally without wheezes or crackles. Good bilateral breath sounds on mechanical ventilation. Heart: Normal S1-S2, tachycardia at 120, neck veins are full but not tensely distended. Abdomen: Soft, nondistended, no guarding, no peritoneal irritation, bowel sounds are absent. Extremities: Warm, well-perfused, no peripheral edema. Neuro: Pupils 6 mm, irregular periphery, do not react to light. Cough reflex is positive. Gag reflex minimal. No withdrawal to noxious stimulation of limbs. Deep tendon reflex left knee 3+, right knee 3+. Sustained clonus right ankle 10 seconds. No clonus left ankle. Toes neutral bilaterally. GCS 3T. She does have a spontaneous respiratory effort above the ventilator rate. Corneal reflexes absent. Caprini VTE Risk Assessment Caprini VTE Risk Assessment: Moderate/High Risk (score >= 2) Caprini Risk Assessment Model: Point Value = 1 Point Value = 2 Point Value = 3 Point Value = 5 Age 41-60 Minor surgery BMI > 25 kg/m2 Swollen legs Varicose veins or History of unexplained or recurrent spontaneous Oral contraceptives or hormone replacement Sepsis (< 1 month) Serious lung disease, including pneumonia (< 1 month) Abnormal pulmonary function Acute myocardial infarction Congestive heart failure (< 1 month) History of inflammatory bowel disease Medical patient at bed rest Age 61-74 Arthroscopic surgery Major open surgery (> 45 min) Laparoscopic surgery (> 45 min) Malignancy Confined to bed (> 72 hours) Immobilizing plaster cast Central venous access Age >= 75 History of VTE Family history of VTE Factor V Leiden Prothrombin [id number] Lupus anticoagulant Anticardiolipin antibodies Elevated serum homocysteine Heparin-induced thrombocytopenia Other congenital or acquired thrombophilia Stroke (< 1 month) Elective arthroplasty Hip, pelvis, or leg fracture Acute spinal cord injury (< 1 month) Prophylaxis Regimen: Total Risk Factor Score Risk Level Prophylaxis Regimen 0-1 Low Early ambulation 2 Moderate Order ONE of the following: *Sequential Compression Device (SCD) *Heparin 5000 units SQ BID 3-4 Higher Order ONE of the following medications: *Heparin 5000 units SQ TID *Enoxaparin/Lovenox 40 mg SQ daily (WT < 150 kg, CrCl > 30 mL/min) *Enoxaparin/Lovenox 30 mg SQ daily (WT < 150 kg, CrCl > 10-29 mL/min) *Enoxaparin/Lovenox 30 mg SQ BID (WT < 150 kg, CrCl > 30 mL/min) AND/OR *Sequential Compression Device (SCD) 5 or more Highest Order ONE of the following medications: *Heparin 5000 units SQ TID (Preferred with Epidurals) *Enoxaparin/Lovenox 40 mg SQ daily (WT < 150 kg, CrCl > 30 mL/min) *Enoxaparin/Lovenox 30 mg SQ daily (WT < 150 kg, CrCl > 10-29 mL/min) *Enoxaparin/Lovenox 30 mg SQ BID (WT < 150 kg, CrCl > 30 mL/min) AND *Sequential Compression Device (SCD) Assessment and Plan - Problem List (1) Intraparenchymal hemorrhage of brain Code(s): I61.9 - Nontraumatic intracerebral hemorrhage, unspecified Status: Acute (2) Acute respiratory failure Code(s): J96.00 - Acute respiratory failure, unspecified whether with hypoxia or hypercapnia Status: Acute (3) Coma Code(s): R40.20 - Unspecified coma Status: Acute (4) Brain aneurysm Code(s): I67.1 - Cerebral aneurysm, nonruptured Status: Acute (5) Subarachnoid hemorrhage Code(s): I60.9 - Nontraumatic subarachnoid hemorrhage, unspecified Status: Acute - Assessment and Plan Plan: Plan: 1. Mechanical ventilation, PRVC mode, maintain partial pressure of carbon dioxide in neutral range. 2. Correlate end-tidal carbon dioxide measurement with bloodstream. 3. Nimotop 60 mg p.o. every 4 hours. 4. Lopressor 5 mg IV every 15 minutes as needed pulse greater than 110. 5. Start Lopressor 25 per NG tube every 12 hours. 6. Cardene continuous infusion to maintain systolic blood pressure less than 140. 7. Electrolyte replacement protocol to include magnesium and phosphorus. 8. Ventriculostomy drain set at 20 cm water elevation 9. Propofol infusion as necessary for additional help with blood pressure control. 10. Labetalol 20 mg ordered as needed for additional blood pressure control. 11. Nasogastric tube to low intermittent suction, use for oral medications. 12. Head of bed up 40. 13. Discussed in detail with on-call neurosurgeon. Overall impression: This woman is critically ill and neurologically unstable after having sustained a spontaneous parenchymal hemorrhage involving the right hemisphere. Origin of the bleed is quite likely the M1 branch of the right middle cerebral artery. The family is keenly aware of the severity of this problem and understand that the patient has a high likelihood of not surviving. Now when during transport the mainstay of our therapy is blood pressure control and the maintenance of cerebral perfusion pressure. Critical care time 50 minutes aside from invasive procedures Code Status: Full code. Discussed Condition With: Neurosurgeon, patient's , bedside nurse, emergency room physician. Procedures - Arterial Line Size (Gauge): 18
[2018-04-12] MEDS ORDERED: Potassium Chlor 10 mEq Premix 10 MEQ/100 ML PIGGYBACK IV.SIG SCH (15:30)
[2018-04-12] MEDS ORDERED: Oral Hygiene Kit OROPHARYNG SCH (16:00)
--- NOTE | 2018-04-12 17:56 | MB ---
cc: Oneal Salcedo MD, PhD DATE: 04/12/2018 REASON FOR CONSULTATION: Stroke alert. HISTORY OF PRESENT ILLNESS: Ms. Gu is a 62-year-old female who was at [employer] this morning and then suddenly lost consciousness, was noted to be profoundly weak in the left arm and left leg and had slurred speech. She was brought by EMS to the ER as a stroke alert. I discussed her case with Dr. Weaver and recommended CT brain as well as CT angiogram. CT brain, however, revealed a large intraparenchymal hemorrhage involving the right hemisphere, involving the right frontal lobe, right basal ganglia, and right temporal lobe, measuring 6.7 x 4.2 cm, with significant edema, right to left shift. Some subarachnoid hemorrhage was identified in the right frontal area. No ventricular enlargement was identified. She had a CT angiogram of the head as well, which showed findings consistent with active hemorrhage in the distal right M1 branch with large hematoma. Findings concerning for the possibility of a hemorrhage from a distal M1 aneurysm. CTA of the neck: No significant carotid stenosis was identified. Asymmetry of the vertebral arteries noted, but no stenosis of the vertebral arteries are seen. PHYSICAL EXAMINATION: VITAL SIGNS: Blood pressure 73/49, pulse 73, respirations 16, temperature 95.9 degrees. NEUROLOGIC: Higher cortical functions: The patient is nonresponsive. The right pupil is slightly larger than the left. She is having extensor posturing on the right. No movement on the left. RADIOLOGY STUDIES: As noted above. LABORATORY DATA: White count 7200, hemoglobin 14.2, hematocrit 43%, platelet count 171,000. PT 10.4, INR 1, aPTT 17.8. Sodium is 143, potassium is 3, chloride 108, CO2 of 26, BUN is 15, creatinine 1.02, GFR 66, glucose 167. IMPRESSION: Large right hemisphere hemorrhage. Possible aneurysm based on the CTA finding. The patient is obviously not a candidate for TPA. RECOMMENDATIONS: Per neurosurgery consultation. Oneal Salcedo MD, PhD RADHA/rm , 04:44 PM , 04:51 PM
[2018-04-12] MEDS ORDERED: Chlorhexidine 0.12% Oral Kit 15 ML UDC OROPHARYNG SCH (20:00)
[2018-04-12] MEDS ORDERED: Famotidine 20 MG Tablet PO SCH (21:00)
[2018-04-12] MEDS ORDERED: Famotidine PF Inj 20 MG/2 ML Vial IV.PUSH SCH ×2 (21:00)
[2018-04-12] MEDS ORDERED: Senna/Docusate Sodium 8.6/50 MG Tablet PO SCH (21:00)
[2018-04-12] MEDS ORDERED: Famotidine 20 MG Tablet NG/OG SCH (21:00)
[2018-04-13] MEDS ORDERED: Chlorhexidine Gluconate 2% 1 Pack (2 Cloths) TOPICAL PRN ×2 (04:00)
[2018-04-13] MEDS ORDERED: Chlorhexidine Gluconate 2% 1 Pack (2 Cloths) TOPICAL SCH ×2 (04:00)
--- NOTE | 2018-04-13 07:09 | P.DS ---
Date of admission: 04/12/18 13:56 Primary care physician: UNKNOWN Attending physician on discharge: Noe Zuñiga Brief History from admission: 62-year-old woman collapsed at restorationist. Following this episode she had left arm and leg weakness and slurred speech. 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 She deteriorated further to snoring respirations and inadequate airway control and required intubation and mechanical ventilation. Cardene infusion was used for blood pressure control and following the insertion of an NG tube number top 30 mg was given. Episodic tachycardia in the range 160 required intermittent intravenous Lopressor. Meticulous blood pressure control less than 140 has been accomplished using beta-marco and Cardene therapy. Mechanical ventilation is produced a partial pressure of carbon dioxide in the low normal range. The sap business objects consultant neurosurgeon placed a ventriculostomy in the contralateral hemisphere and with drainage and intracranial pressure of 16 is accomplished. The EVD is leveled at 20. I have met the patient on her arrival to the intensive care unit were ongoing blood pressure manipulations have been continued. Report has now been given to the transport team at [facility] and arrangements are being made for transfer. I have talked extensively with the family. They understand that this is an extremely serious bleed in the brain and that chances for survival are low. Specifically, I have talked to the and he acknowledges understanding of the dire condition. DS: Diagnosis - Discharge Diagnosis (1) Intraparenchymal hemorrhage of brain Status: Acute (2) Acute respiratory failure Status: Acute (3) Coma Status: Acute (4) Brain aneurysm Status: Acute (5) Subarachnoid hemorrhage Status: Acute DS: Summary Hospital Course: Patient was admitted with a large right hemispheric intracranial hemorrhage probably aneurysmal in origin. Blood pressure control was obtained and following communication with neurosurgical service [facility] the patient was transferred by helicopter to [place]. - Time Spent with Patient Total time spent providing and/or coordinating discharge services: Greater than 30 minutes - Quality: AMI Clinical Trial Participant: No Exam Vital signs: Vital Signs 04/12/18 11:42 04/12/18 11:51 04/12/18 11:54 Temperature Pulse Rate 69 70 Respiratory Rate 18 16 16 Blood Pressure 190/91 H 242/109 H Pulse Oximetry 99 100 98 04/12/18 12:24 04/12/18 12:26 04/12/18 14:10 Temperature 95.9 F L Pulse Rate 73 Respiratory Rate 16 Blood Pressure 73/49 L Pulse Oximetry 98 100 100 04/12/18 14:30 04/12/18 15:33 04/12/18 16:10 Temperature Pulse Rate Respiratory Rate 20 16 Blood Pressure Pulse Oximetry 97 100 Intake & Output 04/12/18 04/13/18 04/13/18 18:59 06:59 18:59 Weight 72.7 kg Narrative: See H&P today. GCS3T. Intubated, mechanically ventilated. Results Procedures completed during hospitalization: Insertion of external ventriculostomy drain. Oral tracheal intubation. Insertion of arterial monitoring line. Labs on day of discharge: Labs from last 24 hours 04/12/18 04/12/18 04/12/18 12:49 12:35 11:57 WBC RBC Hgb POC Hgb (Calc) Hct POC Hct MCV MCH MCHC RDW Plt Count MPV Neut % (Auto) Lymph % (Auto) Benzie % (Auto) Eos % (Auto) Baso % (Auto) Neut # (Auto) Lymph # (Auto) Benzie # (Auto) Eos # (Auto) Baso # (Auto) WBC Differential Differential Comment PT INR APTT Fibrinogen Puncture Site Art line Right radial Patient Temperature 98.6 98.6 O2 Saturation 97 ABG pH 7.39 ABG pCO2 33 L ABG pO2 112 ABG HCO3 20 L ABG O2 Content 17.6 ABG Base Excess -4.5 L ABG Methemoglobin 0.6 Tunde Test Present VBG pH 7.36 VBG pCO2 39 L VBG pO2 47 H VBG HCO3 21 L VBG O2 Saturation 80 H VBG O2 Content 14.2 VBG Base Excess -3.2 L VBG Carboxyhemoglobin 0.8 VBG Methemoglobin 0.7 Hemoglobin 12.8 12.7 Carboxyhemoglobin 0.7 O2 Delivery Device Ventilator Ventilator Vent Setting Prvc20/500/0.7/+5 Prvc20/500/1.0/+5 Inspired O2 50 50 Critical Value No No POC Sodium Sodium POC Potassium Potassium POC Chloride Chloride Carbon Dioxide Anion Gap POC BUN BUN Creatinine POC Creatinine Estimated GFR POC Glucose Random Glucose Calcium Total Creatine Kinase Troponin I Urine Color Yellow Urine Clarity Cloudy H Urine pH 6.0 Ur Specific Kennard 1.013 Urine Protein 100 H Urine Glucose (UA) 150 H Urine Ketones Trace H Urine Occult Blood Large H Urine Nitrate Negative Urine Bilirubin Negative Urine Urobilinogen Less than 2 Ur Leukocyte Esterase Trace H Urine RBC 1 Urine WBC 7 H Ur Squamous Epith Cells 13 Urine Bacteria Rare H Hyaline Casts 3 Urine Mucus Few H Micro UA Comment Cath-culture ind Urine Culture Comments Cath-cult indicated Blood Type Blood Type Recheck Antibody Screen 04/12/18 04/12/18 04/12/18 11:30 11:30 11:30 WBC RBC Hgb POC Hgb (Calc) 14.6 Hct POC Hct 43.0 MCV MCH MCHC RDW Plt Count MPV Neut % (Auto) Lymph % (Auto) Benzie % (Auto) Eos % (Auto) Baso % (Auto) Neut # (Auto) Lymph # (Auto) Benzie # (Auto) Eos # (Auto) Baso # (Auto) WBC Differential Differential Comment PT 10.4 INR 1.0 APTT 17.8 L Fibrinogen 328 Puncture Site Patient Temperature O2 Saturation ABG pH ABG pCO2 ABG pO2 ABG HCO3 ABG O2 Content ABG Base Excess ABG Methemoglobin Tunde Test VBG pH VBG pCO2 VBG pO2 VBG HCO3 VBG O2 Saturation VBG O2 Content VBG Base Excess VBG Carboxyhemoglobin VBG Methemoglobin Hemoglobin Carboxyhemoglobin O2 Delivery Device Vent Setting Inspired O2 Critical Value POC Sodium 143 Sodium 143 POC Potassium 3.0 L Potassium 3.0 L POC Chloride 108 Chloride 110 H Carbon Dioxide 26.1 Anion Gap 7 POC BUN 15 BUN 15 Creatinine 1.02 H POC Creatinine 0.9 Estimated GFR 66 L POC Glucose 174 H Random Glucose 167 H Calcium 8.8 Total Creatine Kinase 90 Troponin I Less than 0.02 L Urine Color Urine Clarity Urine pH Ur Specific Kennard Urine Protein Urine Glucose (UA) Urine Ketones Urine Occult Blood Urine Nitrate Urine Bilirubin Urine Urobilinogen Ur Leukocyte Esterase Urine RBC Urine WBC Ur Squamous Epith Cells Urine Bacteria Hyaline Casts Urine Mucus Micro UA Comment Urine Culture Comments Blood Type A Positive Blood Type Recheck Required Antibody Screen Negative 04/12/18 11:30 WBC 7.2 RBC 5.11 Hgb 14.3 POC Hgb (Calc) Hct 43.4 POC Hct MCV 84.9 MCH 28.1 MCHC 33.0 RDW 13.6 Plt Count 171 MPV 9.8 Neut % (Auto) 33.8 Lymph % (Auto) 57.2 H Benzie % (Auto) 6.6 Eos % (Auto) 1.5 Baso % (Auto) 0.9 Neut # (Auto) 2.4 Lymph # (Auto) 4.1 Benzie # (Auto) 0.5 Eos # (Auto) 0.1 Baso # (Auto) 0.1 WBC Differential . Differential Comment Auto diff final PT INR APTT Fibrinogen Puncture Site Patient Temperature O2 Saturation ABG pH ABG pCO2 ABG pO2 ABG HCO3 ABG O2 Content ABG Base Excess ABG Methemoglobin Tunde Test VBG pH VBG pCO2 VBG pO2 VBG HCO3 VBG O2 Saturation VBG O2 Content VBG Base Excess VBG Carboxyhemoglobin VBG Methemoglobin Hemoglobin Carboxyhemoglobin O2 Delivery Device Vent Setting Inspired O2 Critical Value POC Sodium Sodium POC Potassium Potassium POC Chloride Chloride Carbon Dioxide Anion Gap POC BUN BUN Creatinine POC Creatinine Estimated GFR POC Glucose Random Glucose Calcium Total Creatine Kinase Troponin I Urine Color Urine Clarity Urine pH Ur Specific Kennard Urine Protein Urine Glucose (UA) Urine Ketones Urine Occult Blood Urine Nitrate Urine Bilirubin Urine Urobilinogen Ur Leukocyte Esterase Urine RBC Urine WBC Ur Squamous Epith Cells Urine Bacteria Hyaline Casts Urine Mucus Micro UA Comment Urine Culture Comments Blood Type Blood Type Recheck Antibody Screen - Impressions ITS Impressions Chest X-Ray 04/12/18 11:31 CONCLUSION: 1. ETT in good position. NGT in the stomach. 2. Minimal patchy bilateral lower lobe airspace disease, likely atelectasis. Head CT 04/12/18 11:31 CONCLUSION: 1. Acute intraparenchymal hemorrhage measuring up to 6.7 cm with surrounding vasogenic edema. This causes local mass effect with 13 mm of [id number] midline shift. 2. Subarachnoid blood products layer along the right frontal sulci and in the perimesencephalic cisterns. Findings were telephoned to Dr. Weaver on 04/12/2018 at 1151 hours. Head CTA 04/12/18 11:31 CONCLUSION: 1. Findings consistent with active hemorrhage from the distal right M1 branch with associated large right parietal intraparenchymal hematoma and significant [id number] subfalcine herniation as described on noncontrasted CT exam. The right M2 branches are largely not opacified although a single M2 branch is noted coursing posteriorly from the region of extravasation. Although active hemorrhage obscures any potential vascular abnormality, the overall findings are very concerning for active hemorrhage from the distal right M1 aneurysm. Findings were personally discussed with the neurosurgeon construction equipment mechanic helper. Neck CTA 04/12/18 11:31 CONCLUSION: 1. Motion degraded exam with limited evaluation of the mid to distal right internal carotid cervical segment. 2. Otherwise, no significant carotid flow-limiting stenosis or atherosclerotic plaque. 3. Asymmetric vertebral arteries with small caliber left vertebral artery likely terminating in PICA. Discharge Plan - Discharge Disposition Patient Disposition: 02 Disch To Another Hospital - Discharge Condition Condition: Critical - Discharge Order Discharge Orders: Discharge Order (Routine); Ordered 04/12/18 Ordered By: Sergey Weaver - Discharge Details Anticipated Discharge Date: 04/23/18 - Physicians Team Primary Care Provider: UNKNOWN, Attending Provider: Noe Zuñiga Other Providers: Oneal Salcedo MD, PhD
--- NOTE | 2018-04-14 16:53 | ECG ---
Date Performed: 04/12/2018 Time Performed: 11:55:57 PTAGE: 62 years EKG: Sinus rhythm LEFT ATRIAL ENLARGEMENT SEPTAL MYOCARDIAL INFARCTION ACUTE SC Compared to previous tracing, ST elevation in leads V1 and V2 do appear more acute ([place]) appearing than her prior EKG with ant erolateral ST depression, consider acute SC NO PREVIOUS TRACING DOCTOR: Jarett Melgoza Interpretating Date/Time 04/14/2018 16:52:17
--- NOTE | 2018-04-14 16:55 | ECG ---
Date Performed: 04/12/2018 Time Performed: 13:46:48 PTAGE: 62 years EKG: ATRIAL FIBRILLATION WITH RAPID VENTRICULAR RESPONSE SEPTAL MYOCARDIAL INFARCTION MARKED ST DEPRESSION, CONSIDER SUBENDOCARDIAL INJURY Compared to previous tracing, rapid atrial fibrillation h as replaced Sinus rhythm with worsening of the precordial ST depressions. Also seen are ST elevation in AVR suggesting left m ain or multivessel coronary disease Clinical correlation is required ABNORMAL ECG PREVIOUS TRACING : 01/23/2016 14.16 DOCTOR: Jarett Melgoza Interpretating Date/Time 04/14/2018 16:53:40
--- NOTE | 2018-04-14 16:57 | ECG ---
Date Performed: 04/12/2018 Time Performed: 13:58:24 PTAGE: 62 years EKG: Sinus rhythm POSSIBLE RIGHT ATRIAL ENLARGEMENT LEFT ATRIAL ENLARGEMENT POSSIBLE LEFT VENTRICULAR HYPERTROPHY POSS IBLE SEPTAL MYOCARDIAL INFARCTION ST DEVIATION AND MODERATE T-WAVE ABNORMALITY, CONSIDER LATERAL ISCH EMIA Compared to previous tracing, continued ST elevation in leads aVR and lead V1/V2 with anterolate ral ST depression, consider acute HI Clinical correlation is required ABNORMAL ECG PREVIOUS TRACING : 04/12/2018 13.46 DOCTOR: Jarett Melgoza Interpretating Date/Time 04/14/2018 16:55:16
== END 2018-04-12 16:20 | disposition short-term general hospital (02) ==
LOC: NEPE 11:27 → NEDA 13:56 → N03 14:14
PROVIDERS: ADMIT Surgery Surgical Critical Care; ATTEND Surgery Surgical Critical Care